=== PATIENT | female | born 1995 | race Caucasian/White ===

== ENCOUNTER 2021-08-16 17:39 | Inpatient (IN) ==
[2021-08-16] MEDS ORDERED: MEPERIDINE 50 MG/1 ML VIAL IV PRN (18:09)
[2021-08-16] MEDS ORDERED: LIDOCAINE 1% 50 ML VIAL MISC INJ ONE (18:09)
[2021-08-16] MEDS ORDERED: ONDANSETRON 4 MG/2 ML VIAL IV PRN (18:09)
[2021-08-16] MEDS ORDERED: BUTORPHANOL 2 MG/ML VIAL IV PRN (18:09)
[2021-08-16 18:20] LABS: Basophils % 0.1 % (0.0-0.8); Eosinophils # 0.1 10*3/uL (0.0-0.87); Eosinophils % 0.7 % (0.00-10.9); Hemoglobin 12.8 GM/DL (12.0-16.0); Immature Granulocytes % 0.4 %; Immature Granulocytes Absolute 0.04 #; Lymphocytes # 1.9 10*3/uL (1.4-4.0); Mean Corpuscular HGB Conc 33.7 GM/DL (32-36); Mean Corpuscular Volume 94.8 FL (87-102); Mean Platelet Volume 10.2 FL (9.6-12.0); Monocytes % 7.4 % (1.7-12.7); Neutrophils % 70.4 % (38.7-73.9); Platelet Count 170 T/CUMM (130-400); Red Blood Count 4.01 MC/CUMM (3.8-5.5)
[2021-08-16] MEDS: LACTATED RINGERS 1,000 ML IV SCH ×2 (18:33→19:55)
[2021-08-16 18:39] LABS: Alanine Aminotransferase 21 U/L (13-56); Albumin 2.6 G/DL (3.4-5.0); Alkaline Phosphatase 171 U/L (45-117); Aspartate Amino Transferase 12 U/L (0-37); Bilirubin,Direct < 0.100 MG/DL (0.0-0.20); Blood Urea Nitrogen 6 MG/DL (7-18); Carbon Dioxide 24 MMOL/L (21-32); Estimated Glom Filtration Rate 151 ML/MIN; Glucose 114 MG/DL (74-106); Osmolality,Calculated 277.4 MOS/KG (273-304); Potassium 3.4 MMOL/L (3.5-5.1); Sodium 140 MMOL/L (136-145); Total Protein 6.3 G/DL (6.4-8.2); Uric Acid 3.1 MG/DL (2.6-6.0)
[2021-08-16 18:42] LABS: Bacteria,Urine Occasional /HPF (Few); Bilirubin,Urine Negative (Negative); Blood, Urine Small mg/dL (Negative); Glucose,Urine (UA) Negative (Negative); Ketones,Urine Negative (Negative); Nitrite,Urine Negative (Negative); Protein,Urine Negative; RBC,Urine <1 /HPF (0-4); Squamous Epithelial Cell,Urine Occasional /HPF (0-10); Urine Appearance CLEAR (Clear); Urine Color Colorless (Yellow); Urine Specific Gravity 1.002 (1.001-1.035); Urine Urobilinogen < 2.0 EU/DL (0.2-1.0)
[2021-08-16 18:49] LABS: Protein/Creatinine Ratio,Urine 0.6 RATIO
[2021-08-16 19:00] LABS: INR 0.9
[2021-08-17] MEDS: LACTATED RINGERS 1,000 ML IV SCH (04:29)
[2021-08-17] MEDS ORDERED: OXYTOCIN/LR 20 UNIT/1,000 ML BAG IV SCH (05:30)
[2021-08-17] MEDS ORDERED: LACTATED RINGERS 1,000 ML IV ONE (07:51)
[2021-08-17] MEDS ORDERED: ePHEDrine 50 MG/ML VIAL IV PRN (07:51)
[2021-08-17] MEDS ORDERED: hydrOXYzine HCL 25 MG/1 ML VIAL IM PRN (07:51)
[2021-08-17] MEDS ORDERED: FAMOTIDINE 20 MG/2 ML VIAL IV ONE (07:51)
[2021-08-17] MEDS ORDERED: CITRIC ACID/SODIUM CITRATE 30 ML UDCUP PO ONE (07:51)
[2021-08-17] MEDS ORDERED: PROMETHAZINE 25 MG/1 ML VIAL IM ONE (07:51)
[2021-08-17] MEDS ORDERED: ONDANSETRON 4 MG/2 ML VIAL IV ONE (07:51)
[2021-08-17] MEDS ORDERED: diphenhydrAMINE 50 MG/1 ML VIAL IV PRN ×2 (07:51)
[2021-08-17] MEDS ORDERED: NALOXONE 0.4 MG/ML VIAL IV PRN (07:51)
[2021-08-17] MEDS ORDERED: fentaNYL 2 MCG/ROPIV 0.2% EPID 100 ML EPIDURAL SCH (08:00)
[2021-08-17 10:39] LABS: Bilirubin,Urine Negative (Negative); Blood, Urine Negative (Negative); Glucose,Urine (UA) Negative (Negative); Ketones,Urine 20 mg/dL (Negative); Mucus,Urine Occasional /LPF (Occasional); Nitrite,Urine Negative (Negative); Protein,Urine Negative; RBC,Urine 1 /HPF (0-4); Squamous Epithelial Cell,Urine Occasional /HPF (0-10); Urine Appearance CLEAR (Clear); Urine Color Yellow (Yellow); Urine Specific Gravity 1.009 (1.001-1.035); Urine Urobilinogen < 2.0 EU/DL (0.2-1.0)
[2021-08-17] MEDS ORDERED: CARBOPROST TROMETHAMINE 250 MCG/ML AMP IM ONE (14:15)
[2021-08-17] MEDS ORDERED: miSOPROStoL 200 MCG TABLET ONE (14:15)
[2021-08-17] MEDS ORDERED: OXYTOCIN/LR 20 UNIT/1,000 ML BAG IV ONE ×2 (14:15→16:31)
[2021-08-17] MEDS ORDERED: TRANEXAMIC ACID 1,000 MG/10 ML VIAL ONE (14:15)
[2021-08-17] MEDS ORDERED: METHYLERGONOVINE 0.2 MG/1 ML AMP ONE (14:15)
[2021-08-17 14:42] LABS: Cord Arterial Blood HCO3 21.3 MMOL/L
[2021-08-17 14:43] LABS: Cord Venous Blood HCO3 22.8 MMOL/L; Cord Venous Blood PCO2 34.6 MMHG; Cord Venous Blood PO2 29.7 MMHG
[2021-08-17] MEDS ORDERED: HYDROCORTISONE 2.5% RECTAL CREAM 30 GM TUBE TOP PRN (16:31)
[2021-08-17] MEDS ORDERED: MEASLES/MUMPS/RUBELLA VACCINE 0.5 ML VIAL SUBCUT ONE (16:31)
[2021-08-17] MEDS ORDERED: BISACODYL 10 MG SUPP RECTAL PRN (16:31)
[2021-08-17] MEDS ORDERED: LANOLIN 50% CREAM 0.3 OZ TUBE TOP PRN (16:31)
[2021-08-17] MEDS ORDERED: DIPH/TET/ACEL PERT BOOSTER VACCINE 0.5 ML VIAL IM ONE (16:31)
[2021-08-17] MEDS ORDERED: oxyCODONE/ACETAMINOPHEN 5-325 MG TABLET PO PRN ×2 (16:31)
[2021-08-17] MEDS ORDERED: BENZOCAINE 20%/MENTHOL 0.5% SPRAY 56 GM CAN TOP PRN (16:31)
[2021-08-17] MEDS ORDERED: ACETAMINOPHEN 325 MG TABLET PO PRN (16:31)
[2021-08-17] MEDS ORDERED: WITCH HAZEL PADS 100/JAR TOP PRN (16:31)
[2021-08-17] MEDS: IBUPROFEN 800 MG TABLET PO PRN (17:18)
[2021-08-17] MEDS ORDERED: ACETAMINOPHEN/CODEINE 300-30 MG TABLET PO PRN (17:38)
[2021-08-17] MEDS ORDERED: POTASSIUM CHLORIDE 20 MEQ TABLET PO PRN (18:50)
[2021-08-17] MEDS: DOCUSATE SODIUM 100 MG CAPSULE PO SCH ×2 (19:41→21:37)
[2021-08-17] MEDS: ACETAMINOPHEN/CODEINE 300-30 MG TABLET PO PRN (21:22)
[2021-08-18] MEDS: ACETAMINOPHEN/CODEINE 300-30 MG TABLET PO PRN ×2 (01:20→05:25)
[2021-08-18] MEDS: IBUPROFEN 800 MG TABLET PO PRN ×3 (01:20→17:12)
[2021-08-18 05:34] LABS: Basophils % 0.2 % (0.0-0.8); Eosinophils # 0.1 10*3/uL (0.0-0.87); Eosinophils % 0.6 % (0.00-10.9); Hematocrit 38.6 VOL% (35.7-47.0); Immature Granulocytes % 0.6 %; Immature Granulocytes Absolute 0.08 #; Lymphocytes # 2.1 10*3/uL (1.4-4.0); Lymphocytes % 16.5 % (21.3-54.2); Mean Corpuscular HGB Conc 33.7 GM/DL (32-36); Mean Corpuscular Volume 95.1 FL (87-102); Mean Platelet Volume 10.6 FL (9.6-12.0); Monocytes % 6.6 % (1.7-12.7); Neutrophils % 75.5 % (38.7-73.9); Platelet Count 140 T/CUMM (130-400); Red Blood Count 4.06 MC/CUMM (3.8-5.5); Red Cell Distribution Width 12.7 % (9.3-17.3); White Blood Count 12.5 T/CUMM (4-12)
[2021-08-18] MEDS: DOCUSATE SODIUM 100 MG CAPSULE PO SCH ×2 (08:35→20:02)
[2021-08-19] MEDS: IBUPROFEN 800 MG TABLET PO PRN ×2 (03:20→10:00)
[2021-08-19 07:50] VITALS: BP 129/79
[2021-08-19] MEDS ORDERED: INFLUENZA VIRUS VACCINE 0.5 ML SYRINGE IM ONE (09:00)
[2021-08-19] MEDS: DOCUSATE SODIUM 100 MG CAPSULE PO SCH (09:58)
[2021-08-19] MEDS ORDERED: MEASLES/MUMPS/RUBELLA VACCINE 0.5 ML VIAL SUBCUT ONE (12:29)
== END 2021-08-19 13:00 | disposition home or self-care (01) | DRG 768 ==
LOC: N.LDOUT 17:39 → N.LD 17:50 → N.SDSINP 08-17 18:10 → N.OB 08-17 18:10
PROVIDERS: ADMIT Obstetrics & Gynecology; ATTEND Obstetrics & Gynecology